=== PATIENT | female | born 1980 ===

== ENCOUNTER 2023-09-12 23:03 | Emergency (ER) | payer MEDICAID, OTHER ==
[2023-09-12] MEDS: Sodium Chloride 0.9% 1,000 ML IV STA (23:23)
[2023-09-12] MEDS: Sodium Chloride 0.9% 10 ML Syringe FLUSH PRN (23:23)
[2023-09-12] MEDS: Sodium Chloride 0.9% 2.5 ML Syringe FLUSH PRN (23:23)
[2023-09-12] MEDS: Ondansetron 4 MG/2 ML SDV IVPUSH ONE (23:29)
[2023-09-12] MEDS: Lidocaine 4% 1 each Patch TOP PRN (23:30)
[2023-09-12 23:36] LABS: BASOPHILS ABSOLUTE AUTO 0.02 K/uL (0.00-0.20); BASOPHILS PERCENT AUTO 0.1 % (0.0-1.0); EOSINOPHILS ABSOLUTE AUTO 0.06 K/uL (0.00-0.45); EOSINOPHILS PERCENT AUTO 0.3 % (0.0-6.0); HEMATOCRIT 46.2 % (37.0-47.0); HEMOGLOBIN 16.2 g/dL (12.0-16.0); IMMATURE GRAN ABSOLUTE AUTO 0.07 K/uL (0.00-0.05); IMMATURE GRAN PERCENT AUTO 0.4 % (0.0-0.4); LYMPHOCYTES ABSOLUTE AUTO 0.35 K/uL (1.00-4.80); LYMPHOCYTES PERCENT AUTO 1.9 % (24.0-44.0); MEAN CORPUSCULAR HEMOGLOBIN 31.8 pg (28.0-32.0); MEAN CORPUSCULAR HGB CONC 35.1 g/dL (32.0-36.0); MEAN CORPUSCULAR VOLUME 90.6 fL (83.0-99.0); MEAN PLATELET VOLUME 11.2 fL (9.4-12.3); MONOCYTES ABSOLUTE AUTO 0.56 K/uL (0.00-0.80); NEUTROPHILS ABSOLUTE AUTO 17.46 K/uL (1.80-7.70); NEUTROPHILS PERCENT AUTO 94.3 % (41.0-71.0); PLATELET COUNT,PLT 235 K/uL (150-400); WHITE BLOOD CELL COUNT,WBC 18.52 K/uL (3.9-11.3)
[2023-09-13 00:11] LABS: ALANINE AMINOTRANSFERASE,ALT 23 IU/L (14-63); ALBUMIN 3.5 g/dL (3.4-5.0); ALKALINE PHOSPHATASE 73 U/L (46-116); ASPARTATE AMNIOTRANSFERASE,AST 20 IU/L (15-37); BILIRUBIN TOTAL 0.8 mg/dL (0.2-1.0); BLOOD UREA NITROGEN,BUN 11 mg/dL (7.0-18.0); CARBON DIOXIDE,CO2 22.7 mmol/L (21.0-32.0); CHLORIDE,CL 102 mmol/L (98-107); CREATININE 0.8 mg/dL (0.6-1.0); EST CRCL DRUG DOSING (CG) 72.45 mL/min; GLUCOSE RANDOM 106 mg/dL (74-106); LIPASE 26 U/L (16-77); POTASSIUM,K 4.1 mmol/L (3.5-5.1); PROTEIN TOTAL,TP 6.9 g/dL (6.4-8.2); SODIUM,NA 137 mmol/L (136-145)
[2023-09-13 00:12] LABS: ESTIMATED GFR 94 mL/min (>60)
[2023-09-13] MEDS: Ketorolac 30 MG/ML SDV IVPUSH ONE (00:55)
== END 2023-09-13 01:18 | disposition home or self-care (01) ==
LOC: MW.ED 23:03
DX: R11.10 Vomiting, unspecified (principal); R19.7 Diarrhea, unspecified
CPT/HCPCS: 36415; 80053; 83690; 84484; 85025; 96361; 96374; 96375; 99284; A9270; J1885; J2405; J3490; J7030; 93010

== ENCOUNTER 2024-12-15 12:42 | Inpatient (IN) | payer SELFPAY ==
[2024-12-15] MEDS ORDERED: Sodium Chloride 0.9% 10 ML Syringe FLUSH PRN (13:10)
[2024-12-15] MEDS ORDERED: Sodium Chloride 0.9% 2.5 ML Syringe FLUSH PRN (13:10)
[2024-12-15] MEDS ORDERED: Sodium Chloride 0.9% 20 ML SDV IV PRN (13:10)
[2024-12-15 13:16] LABS: BASOPHILS ABSOLUTE AUTO 0.03 K/uL (0.00-0.20); BASOPHILS PERCENT AUTO 0.4 % (0.0-1.0); EOSINOPHILS ABSOLUTE AUTO 0.23 K/uL (0.00-0.45); EOSINOPHILS PERCENT AUTO 2.8 % (0.0-6.0); HEMATOCRIT 43.9 % (37.0-47.0); IMMATURE GRAN ABSOLUTE AUTO 0.03 K/uL (0.00-0.05); IMMATURE GRAN PERCENT AUTO 0.4 % (0.0-0.4); LYMPHOCYTES ABSOLUTE AUTO 2.04 K/uL (1.00-4.80); LYMPHOCYTES PERCENT AUTO 24.6 % (24.0-44.0); MEAN CORPUSCULAR HEMOGLOBIN 31.1 pg (28.0-32.0); MEAN CORPUSCULAR HGB CONC 34.2 g/dL (32.0-36.0); MEAN CORPUSCULAR VOLUME 91.1 fL (83.0-99.0); MEAN PLATELET VOLUME 10.3 fL (9.4-12.3); MONOCYTES ABSOLUTE AUTO 0.61 K/uL (0.00-0.80); MONOCYTES PERCENT AUTO 7.4 % (0.0-8.0); NEUTROPHILS ABSOLUTE AUTO 5.35 K/uL (1.80-7.70); NEUTROPHILS PERCENT AUTO 64.4 % (41.0-71.0); PLATELET COUNT,PLT 212 K/uL (150-400); RED BLOOD CELL COUNT 4.82 M/uL (4.10-5.30); WHITE BLOOD CELL COUNT,WBC 8.29 K/uL (3.9-11.3)
[2024-12-15 13:24] LABS: INR 0.97 (0.86-1.11); PTT,PARTIAL THROMBOPLSTIN TIME 24.8 SEC (23.9-30.7)
[2024-12-15 13:26] LABS: ALANINE AMINOTRANSFERASE,ALT 28 IU/L (14-63); ALBUMIN 3.5 g/dL (3.4-5.0); ALKALINE PHOSPHATASE 83 U/L (46-116); ASPARTATE AMNIOTRANSFERASE,AST 30 IU/L (15-37); BILIRUBIN TOTAL 0.7 mg/dL (0.2-1.0); BLOOD UREA NITROGEN,BUN 14 mg/dL (7.0-18.0); CARBON DIOXIDE,CO2 28.6 mmol/L (21.0-32.0); CHLORIDE,CL 104 mmol/L (98-107); CREATINE KINASE,CK 421 U/L (26-308); CREATININE 0.9 mg/dL (0.6-1.0); ESTIMATED GFR 81 mL/min (>60); ETHANOL BLOOD MEDICAL <3 mg/dL; GLUCOSE RANDOM 102 mg/dL (74-106); POTASSIUM,K 4.2 mmol/L (3.5-5.1); PROTEIN TOTAL,TP 7.1 g/dL (6.4-8.2); SODIUM,NA 140 mmol/L (136-145)
[2024-12-15 13:52] LABS: LACTIC ACID 0.9 mmol/L (0.4-2.0)
[2024-12-15] MEDS: Sodium Chloride 0.9% 1,000 ML IV ONE (13:55)
[2024-12-15] MEDS: Sodium Chloride 0.9% 1,000 ML IV STA (14:59)
[2024-12-15 15:12] LABS: ACETAMINOPHEN <2.0 ug/mL; SALICYLATE 1.4 mg/dL (0.0-20.0)
[2024-12-15 15:43] LABS: COLOR,URINE YELLOW; GLUCOSE,URINE NEGATIVE (NEGATIVE); KETONES,URINE NEGATIVE (NEGATIVE); LEUKOCYTE ESTERASE,URINE NEGATIVE (NEGATIVE); NITRITE,URINE NEGATIVE (NEGATIVE); OCCULT BLOOD,URINE NEGATIVE (NEGATIVE); PH,URINE 5.5 (5.0-8.0); PROTEIN,URINE TRACE mg/dL (NEGATIVE); UROBILINOGEN,URINE 0.2 EU/dL (<2.0)
[2024-12-15 15:47] LABS: APPEARANCE,URINE HAZY; BILIRUBIN,URINE SMALL (NEGATIVE)
[2024-12-15 15:51] LABS: BACTERIA,URINE 1+ (NEGATIVE); EPITHELIAL CELLS,URINE MANY (NONE-FEW); MUCUS,URINE FEW (NONE-MOD); RBC,URINE 0-1 (0-2/HPF)
[2024-12-15] MEDS: Lactated Ringers 1,000 ML IV STA (16:33)
[2024-12-15 16:49] LABS: AMPHETAMINES SCREEN, URINE NEGATIVE (CUTOFF=500); BARBITURATE SCREEN,URINE NEGATIVE (CUTOFF=200); BENZODIAZEPINES SCREEN,URINE PRESUMPTIVE POSITIVE (CUTOFF=150); BUPRENORPHINE SCREEN,URINE NEGATIVE (CUTOFF=10); METHADONE SCREEN, URINE NEGATIVE (CUTOFF=200); METHAMPHETAMINES SCREEN, URINE NEGATIVE (CUTOFF=500); OXYCODONE SCREEN,URINE NEGATIVE (CUT0FF=100); PCP SCREEN,URINE NEGATIVE (CUTOFF=25); THC SCREEN,URINE 20 NG/ML NEGATIVE (CUTOFF=50)
[2024-12-15] MEDS: Lactated Ringers 1,000 ML IV ONE (21:05)
[2024-12-16] MEDS ORDERED: LORazepam 2 MG/ML SDV IVPUSH PRN (00:57)
[2024-12-16] MEDS: Sodium Chloride 0.9% 1,000 ML IV SCH ×2 (01:01→10:05)
[2024-12-16 06:57] LABS: A/G RATIO 0.9 (0.9-1.6); ALBUMIN 2.6 g/dL (3.4-5.0); BILIRUBIN TOTAL 0.4 mg/dL (0.2-1.0); EST CRCL DRUG DOSING (CG) 62.64 mL/min; POTASSIUM,K 3.7 mmol/L (3.5-5.1); PROTEIN TOTAL,TP 5.4 g/dL (6.4-8.2)
[2024-12-16] MEDS: Sodium Chloride 0.9% 1,000 ML IV ONE (08:48)
[2024-12-16] MEDS: Folic Acid 1 MG/0.2 ML UD Syringe IV SCH (10:01)
[2024-12-16] MEDS: Thiamine 200 MG in Sodium Chloride 0.9% 100 ML IV SCH (10:03)
[2024-12-16] MEDS: Cyanocobalamin (Vitamin B12) 500 MCG Tab PO SCH (15:26)
[2024-12-16] MEDS: Vitamin B6-pyridOXINE 50 MG Tab PO SCH (15:26)
[2024-12-16] MEDS: fluvoxaMINE 50 MG Tab PO SCH (20:04)
[2024-12-16] MEDS: cloNIDine 0.1 MG Tab PO SCH (20:04)
[2024-12-17 06:10] LABS: BASOPHILS ABSOLUTE AUTO 0.02 K/uL (0.00-0.20); BASOPHILS PERCENT AUTO 0.3 % (0.0-1.0); EOSINOPHILS ABSOLUTE AUTO 0.13 K/uL (0.00-0.45); EOSINOPHILS PERCENT AUTO 2.2 % (0.0-6.0); HEMATOCRIT 35.1 % (37.0-47.0); HEMOGLOBIN 11.5 g/dL (12.0-16.0); IMMATURE GRAN ABSOLUTE AUTO 0.01 K/uL (0.00-0.05); IMMATURE GRAN PERCENT AUTO 0.2 % (0.0-0.4); LYMPHOCYTES ABSOLUTE AUTO 1.72 K/uL (1.00-4.80); LYMPHOCYTES PERCENT AUTO 28.5 % (24.0-44.0); MEAN CORPUSCULAR HEMOGLOBIN 30.4 pg (28.0-32.0); MEAN CORPUSCULAR HGB CONC 32.8 g/dL (32.0-36.0); MEAN CORPUSCULAR VOLUME 92.9 fL (83.0-99.0); MEAN PLATELET VOLUME 10.5 fL (9.4-12.3); MONOCYTES ABSOLUTE AUTO 0.54 K/uL (0.00-0.80); NEUTROPHILS ABSOLUTE AUTO 3.61 K/uL (1.80-7.70); NEUTROPHILS PERCENT AUTO 59.8 % (41.0-71.0); PLATELET COUNT,PLT 156 K/uL (150-400); RED BLOOD CELL COUNT 3.78 M/uL (4.10-5.30); WHITE BLOOD CELL COUNT,WBC 6.03 K/uL (3.9-11.3)
[2024-12-17 06:42] LABS: CALCIUM 7.4 mg/dL (8.5-10.1); CREATININE 0.6 mg/dL (0.6-1.0); EST CRCL DRUG DOSING (CG) 104.4 mL/min; MAGNESIUM 1.8 mg/dL (1.8-2.4); POTASSIUM,K 3.6 mmol/L (3.5-5.1)
[2024-12-17] MEDS: Potassium Chloride 20 MEQ Tab.ER PO ONE ×2 (10:22→12:28)
[2024-12-17] MEDS: Magnesium Oxide 400 MG Tab PO ONE (12:26)
[2024-12-17] MEDS: Lactated Ringers 1,000 ML IV SCH (12:27)
[2024-12-17 14:54] LABS: CALCIUM 8.1 mg/dL (8.5-10.1); CARBON DIOXIDE,CO2 23.1 mmol/L (21.0-32.0); CREATININE 0.6 mg/dL (0.6-1.0); EST CRCL DRUG DOSING (CG) 104.4 mL/min; MAGNESIUM 1.7 mg/dL (1.8-2.4); POTASSIUM,K 4.2 mmol/L (3.5-5.1)
[2024-12-17] MEDS: Magnesium Sulfate 2 GM/50 mL 2 GM in Premix Bag 1 BAG IV ONE (16:21)
[2024-12-18 06:06] LABS: BASOPHILS ABSOLUTE AUTO 0.03 K/uL (0.00-0.20); BASOPHILS PERCENT AUTO 0.4 % (0.0-1.0); EOSINOPHILS ABSOLUTE AUTO 0.17 K/uL (0.00-0.45); EOSINOPHILS PERCENT AUTO 2.4 % (0.0-6.0); HEMATOCRIT 33.4 % (37.0-47.0); HEMOGLOBIN 11.6 g/dL (12.0-16.0); IMMATURE GRAN ABSOLUTE AUTO 0.02 K/uL (0.00-0.05); IMMATURE GRAN PERCENT AUTO 0.3 % (0.0-0.4); LYMPHOCYTES ABSOLUTE AUTO 1.78 K/uL (1.00-4.80); MEAN CORPUSCULAR HEMOGLOBIN 30.9 pg (28.0-32.0); MEAN CORPUSCULAR HGB CONC 34.7 g/dL (32.0-36.0); MEAN CORPUSCULAR VOLUME 89.1 fL (83.0-99.0); MEAN PLATELET VOLUME 11.1 fL (9.4-12.3); MONOCYTES ABSOLUTE AUTO 0.48 K/uL (0.00-0.80); MONOCYTES PERCENT AUTO 6.7 % (0.0-8.0); NEUTROPHILS ABSOLUTE AUTO 4.65 K/uL (1.80-7.70); NEUTROPHILS PERCENT AUTO 65.2 % (41.0-71.0); PLATELET COUNT,PLT 153 K/uL (150-400); RED BLOOD CELL COUNT 3.75 M/uL (4.10-5.30); WHITE BLOOD CELL COUNT,WBC 7.13 K/uL (3.9-11.3)
[2024-12-18 06:39] LABS: CREATININE 0.6 mg/dL (0.6-1.0); EST CRCL DRUG DOSING (CG) 104.4 mL/min; MAGNESIUM 1.9 mg/dL (1.8-2.4); PHOSPHORUS 2.2 mg/dL (2.6-4.7); POTASSIUM,K 3.3 mmol/L (3.5-5.1)
[2024-12-18] MEDS: Potassium Chloride 20 MEQ Tab.ER PO ONE (10:46)
[2024-12-18] MEDS: traMADol 50 MG Tab PO PRN (17:36)
[2024-12-19 06:28] LABS: BASOPHILS ABSOLUTE AUTO 0.03 K/uL (0.00-0.20); BASOPHILS PERCENT AUTO 0.4 % (0.0-1.0); EOSINOPHILS ABSOLUTE AUTO 0.21 K/uL (0.00-0.45); EOSINOPHILS PERCENT AUTO 2.6 % (0.0-6.0); HEMATOCRIT 33.6 % (37.0-47.0); HEMOGLOBIN 11.6 g/dL (12.0-16.0); IMMATURE GRAN ABSOLUTE AUTO 0.03 K/uL (0.00-0.05); IMMATURE GRAN PERCENT AUTO 0.4 % (0.0-0.4); LYMPHOCYTES ABSOLUTE AUTO 1.99 K/uL (1.00-4.80); LYMPHOCYTES PERCENT AUTO 24.8 % (24.0-44.0); MEAN CORPUSCULAR HEMOGLOBIN 30.9 pg (28.0-32.0); MEAN CORPUSCULAR HGB CONC 34.5 g/dL (32.0-36.0); MEAN CORPUSCULAR VOLUME 89.6 fL (83.0-99.0); MEAN PLATELET VOLUME 11.1 fL (9.4-12.3); MONOCYTES ABSOLUTE AUTO 0.58 K/uL (0.00-0.80); MONOCYTES PERCENT AUTO 7.2 % (0.0-8.0); NEUTROPHILS ABSOLUTE AUTO 5.18 K/uL (1.80-7.70); NEUTROPHILS PERCENT AUTO 64.6 % (41.0-71.0); PLATELET COUNT,PLT 168 K/uL (150-400); RED BLOOD CELL COUNT 3.75 M/uL (4.10-5.30); WHITE BLOOD CELL COUNT,WBC 8.02 K/uL (3.9-11.3)
[2024-12-19] MEDS: Thiamine 100 MG Tab PO SCH (09:17)
[2024-12-19 09:44] LABS: CALCIUM 7.9 mg/dL (8.5-10.1); CARBON DIOXIDE,CO2 24.1 mmol/L (21.0-32.0); CREATININE 0.8 mg/dL (0.6-1.0); EST CRCL DRUG DOSING (CG) 78.3 mL/min; POTASSIUM,K 3.6 mmol/L (3.5-5.1)
[2024-12-19] MEDS: Folic Acid 1 MG Tab PO SCH (10:14)
== END 2024-12-19 12:00 | disposition home or self-care (01) | DRG 918 ==
LOC: MW.ED 12:42 → MW.ICU 21:52 → MW.MS 12-17 16:26
PROVIDERS: ADMIT Family Medicine; ATTEND Family Medicine
DX: T42.4X1A Poisoning by benzodiazepines, accidental (unintentional), initial encounter (principal); M62.82 Rhabdomyolysis; R45.851 Suicidal ideations; F32.A Depression, unspecified; T40.421A Poisoning by tramadol, accidental (unintentional), initial encounter; G89.29 Other chronic pain; M54.9 Dorsalgia, unspecified; F10.129 Alcohol abuse with intoxication, unspecified; F41.9 Anxiety disorder, unspecified; F17.210 Nicotine dependence, cigarettes, uncomplicated; Z88.0 Allergy status to penicillin; Z90.89 Acquired absence of other organs; Z79.899 Other long term (current) drug therapy
CPT/HCPCS: 36415; 70450; 70450-26; 72125; 72125-26; 80048; 80053; 80143; 80179; 80305; 80307; 81001; 81025; 82550; 83605; 83735; 84100; 85025; 85610; 85730; 87086; 93005; 96360; 96361; 99285-25; A9270-GY; J3411; J3475; J3490; J7030; J7120

== ENCOUNTER 2025-01-04 14:18 | Emergency (ER) | payer SELFPAY ==
[2025-01-04] MEDS ORDERED: Sodium Chloride 0.9% 10 ML Syringe FLUSH PRN (15:05)
[2025-01-04] MEDS ORDERED: Sodium Chloride 0.9% 20 ML SDV IV PRN (15:05)
[2025-01-04] MEDS ORDERED: Sodium Chloride 0.9% 2.5 ML Syringe FLUSH PRN (15:05)
[2025-01-04] MEDS: Sodium Chloride 0.9% 1,000 ML IV STA (15:15)
[2025-01-04 15:16] LABS: BASOPHILS ABSOLUTE AUTO 0.04 K/uL (0.00-0.20); BASOPHILS PERCENT AUTO 0.4 % (0.0-1.0); EOSINOPHILS ABSOLUTE AUTO 0.18 K/uL (0.00-0.45); EOSINOPHILS PERCENT AUTO 1.9 % (0.0-6.0); IMMATURE GRAN ABSOLUTE AUTO 0.02 K/uL (0.00-0.05); IMMATURE GRAN PERCENT AUTO 0.2 % (0.0-0.4); LYMPHOCYTES ABSOLUTE AUTO 1.51 K/uL (1.00-4.80); LYMPHOCYTES PERCENT AUTO 15.6 % (24.0-44.0); MEAN CORPUSCULAR HEMOGLOBIN 30.8 pg (28.0-32.0); MEAN CORPUSCULAR HGB CONC 34.1 g/dL (32.0-36.0); MEAN CORPUSCULAR VOLUME 90.3 fL (83.0-99.0); MEAN PLATELET VOLUME 11.5 fL (9.4-12.3); MONOCYTES ABSOLUTE AUTO 0.49 K/uL (0.00-0.80); NEUTROPHILS ABSOLUTE AUTO 7.47 K/uL (1.80-7.70); NEUTROPHILS PERCENT AUTO 76.9 % (41.0-71.0); PLATELET COUNT,PLT 269 K/uL (150-400); RED BLOOD CELL COUNT 4.87 M/uL (4.10-5.30); WHITE BLOOD CELL COUNT,WBC 9.71 K/uL (3.9-11.3)
[2025-01-04 15:19] LABS: APPEARANCE,URINE SLT CLOUDY; BILIRUBIN,URINE NEGATIVE (NEGATIVE); COLOR,URINE YELLOW; GLUCOSE,URINE NEGATIVE (NEGATIVE); KETONES,URINE TRACE mg/dL (NEGATIVE); LEUKOCYTE ESTERASE,URINE TRACE (NEGATIVE); NITRITE,URINE NEGATIVE (NEGATIVE); OCCULT BLOOD,URINE NEGATIVE (NEGATIVE); PROTEIN,URINE TRACE mg/dL (NEGATIVE)
[2025-01-04 15:28] LABS: ALANINE AMINOTRANSFERASE,ALT 27 IU/L (14-63); ALBUMIN 3.8 g/dL (3.4-5.0); ALKALINE PHOSPHATASE 74 U/L (46-116); ASPARTATE AMNIOTRANSFERASE,AST 20 IU/L (15-37); BILIRUBIN TOTAL 0.4 mg/dL (0.2-1.0); BLOOD UREA NITROGEN,BUN 12 mg/dL (7.0-18.0); CALCIUM 9.5 mg/dL (8.5-10.1); CARBON DIOXIDE,CO2 28.7 mmol/L (21.0-32.0); CHLORIDE,CL 100 mmol/L (98-107); CREATININE 1.1 mg/dL (0.6-1.0); GLUCOSE RANDOM 54 mg/dL (74-106); LIPASE 26 U/L (16-77); POTASSIUM,K 4.2 mmol/L (3.5-5.1); PROTEIN TOTAL,TP 7.6 g/dL (6.4-8.2); SODIUM,NA 138 mmol/L (136-145)
[2025-01-04 15:29] LABS: AMPHETAMINES SCREEN, URINE NEGATIVE (CUTOFF=500); BARBITURATE SCREEN,URINE NEGATIVE (CUTOFF=200); BENZODIAZEPINES SCREEN,URINE PRESUMPTIVE POSITIVE (CUTOFF=150); BUPRENORPHINE SCREEN,URINE NEGATIVE (CUTOFF=10); METHADONE SCREEN, URINE NEGATIVE (CUTOFF=200); METHAMPHETAMINES SCREEN, URINE NEGATIVE (CUTOFF=500); OXYCODONE SCREEN,URINE NEGATIVE (CUT0FF=100); PCP SCREEN,URINE NEGATIVE (CUTOFF=25); THC SCREEN,URINE 20 NG/ML NEGATIVE (CUTOFF=50)
[2025-01-04 15:32] LABS: ESTIMATED GFR 64 mL/min (>60)
[2025-01-04 15:36] LABS: BACTERIA,URINE RARE (NEGATIVE); EPITHELIAL CELLS,URINE MODERATE (NONE-FEW); MUCUS,URINE MODERATE (NONE-MOD); RBC,URINE 0-2 (0-2/HPF)
== END 2025-01-04 18:45 | disposition home or self-care (01) ==
LOC: MW.ED 14:18
DX: I95.9 Hypotension, unspecified (principal); Z88.0 Allergy status to penicillin; Z79.899 Other long term (current) drug therapy
CPT/HCPCS: 36415; 71045; 80053; 80305; 81001; 81025; 83690; 84484; 85025; 93005; 96360; 96361; 99285; J7030; 99283